=== PATIENT | female | born 1990 | race Two or more races ===

== ENCOUNTER 2024-02-02 19:53 | Emergency (ER) | payer OTHER ==
[~2024-02-02] VITALS: Ht 149.9 cm; Wt 90.7 kg
[2024-02-02 20:09] VITALS: TEMP 98.3
[2024-02-02] MEDS ORDERED: IBUPROFEN 600 MG TABLET ONE (20:37)
[2024-02-02] MEDS: IBUPROFEN 600 MG TABLET PO ONE (20:39)
[2024-02-02] MEDS ORDERED: NAPR-1164 PO (21:42)
[2024-02-02 21:55] VITALS: BP 154/96; O2SAT 100
== END 2024-02-02 21:56 | disposition home or self-care (01) ==
LOC: ER 19:56
DX: M25.571 Pain in right ankle and joints of right foot (principal); M25.471 Effusion, right ankle; I10 Essential (primary) hypertension
CPT/HCPCS: 73610-TC